=== PATIENT | female | born 1980 | race Caucasian/White ===

== ENCOUNTER 2018-08-21 16:56 | Emergency (ER) | payer SELFPAY ==
[~2018-08-21] VITALS: Ht 160 cm; Wt 120.2 kg
[2018-08-21 17:23] VITALS: Ht 160 cm; Wt 120.2 kg
[2018-08-21 20:14] LABS: BASOPHIL % 0.6 % (0-2); PLATELET COUNT 347 x10^3mcL (130-400); RED CELL DISTRIBUTION WIDTH 13.7 % (11.5-14.5)
[2018-08-21 20:25] LABS: CALCIUM 8.8 mg/dL (8.5-10.1); CARBON DIOXIDE 28.6 mmol/L (21-32); CHLORIDE SERUM 102 mmol/L (98-107); CREATININE SERUM 0.8 mg/dL (0.6-1.0); GFR1 > 60 mL/min; GLUCOSE SERUM 98 mg/dL (74-106); POTASSIUM SERUM 3.9 mmol/L (3.5-5.1); SODIUM SERUM 138 mmol/L (136-145)
[2018-08-21 20:29] LABS: ALKALINE PHOSPHATASE 67 U/L (46-116); ALT/SGPT 41 U/L (14-59); AST/SGOT 26 U/L (15-37); BILIRUBIN TOTAL 0.31 mg/dL (0.20-1.00); LIPASE 403 IU/L (73-393)
[2018-08-21 20:30] LABS: ALBUMIN 3.3 g/dL (3.4-5.0); TOTAL PROTEIN, SERUM 8.3 g/dL (6.4-8.2)
[2018-08-21 22:49] VITALS: BP 122/66
== END 2018-08-21 22:49 | disposition home or self-care (01) ==
LOC: ED 16:56
PROVIDERS: Emergency Medicine
DX: R10.84 Generalized abdominal pain (principal); M54.9 Dorsalgia, unspecified; R19.7 Diarrhea, unspecified; R11.0 Nausea; Z98.890 Other specified postprocedural states
CPT/HCPCS: 36415